=== PATIENT | male | born 1975 | race African-American/Black ===

== ENCOUNTER 2023-03-25 09:11 | Emergency (ER) | payer MEDICAID ==
[~2023-03-25] VITALS: Ht 180.3 cm; Wt 84.8 kg
[2023-03-25 10:20] VITALS: BP 142/89; PULSE 77; RESP 18; TEMP 98.3; O2SAT 98
== END 2023-03-25 10:15 | disposition left against medical advice (07) ==
LOC: ER 09:11
DX: M54.50 Low back pain, unspecified (principal); R73.9 Hyperglycemia, unspecified; Z53.21 Procedure and treatment not carried out due to patient leaving prior to being seen by health care provider; W22.01XA Walked into wall, initial encounter; Y93.89 Activity, other specified; Y92.89 Other specified places as the place of occurrence of the external cause; Y99.8 Other external cause status
CPT/HCPCS: 82962

== ENCOUNTER 2023-03-28 13:27 | Emergency (ER) | payer MEDICAID ==
[~2023-03-28] VITALS: Ht 180.3 cm; Wt 87.7 kg
[2023-03-28 14:44] LABS: Alanine Aminotransferase 41 U/L (7-40); Albumin 4.6 g/dL (3.2-4.8); Alkaline Phosphatase 95 U/L (46-116); Aspartate Aminotransferase 22 U/L (13-40); BUN/Creatinine Ratio 6.9 (10.0-20.0); Bilirubin, Total 0.3 mg/dL (0.2-1.0); Blood Urea Nitrogen 7 mg/dL (9-23); Calcium 9.6 mg/dL (8.5-10.1); Carbon Dioxide 30 mmol/L (20-30); Glucose 88 mg/dL (74-106); Total Protein 7.4 g/dL (5.7-8.2)
[2023-03-28] MEDS ORDERED: HYDROcodone-ACET 10/325MG TAB PO ONE (14:45)
[2023-03-28] MEDS ORDERED: KETOROLAC TROMETH 60MG/2ML VIAL IM ONE (14:45)
[2023-03-28 14:55] LABS: Anion Gap 6 (5-15); Chloride 107 mmol/L (98-107); Potassium 4.6 mmol/L (3.5-5.1); Sodium 143 mmol/L (136-145)
[2023-03-28 14:59] LABS: Basophils # (auto) 0 10 ^3/uL (0-0.2); Basophils % (auto) 0.5 % (0.0-2.0); Eosinophils # (auto) 0.1 10 ^3/uL (0-0.8); Eosinophils % (auto) 1.8 % (0.0-7.0); Hematocrit 47.3 % (41.0-53.0); Lymphocytes % (auto) 45.8 % (10.0-50.0); Mean Corpuscular Hemoglobin 29.5 pg (28.0-32.0); Mean Corpuscular Hgb Conc. 33.9 g/dL (32.0-36.0); Monocytes # (auto) 0.4 10 ^3/uL (0-1.3); Monocytes % (auto) 8.2 % (0.0-12.0); Neutrophils % (auto) 43.7 % (37.0-80.0); Nucleated Red Blood Cells % 0.3 %; Red Blood Cells 5.43 10^6/uL (4.5-5.90); Red Cell Distribution Width 14.1 % (11.8-14.3); White Blood Cell 4.5 10^3/uL (4.4-10.8)
[2023-03-28 17:17] LABS: Urine Bacteria NONE SEEN /hpf (None Seen); Urine Blood Negative /uL (Negative); Urine Clarity Clear (Clear); Urine Color Colorless (Yellow); Urine Protein, UAD Negative (Negative); Urine Specific Gravity 1.006 (1.001-1.035); Urine Urobilinogen Normal (Negative); Urine WBC <1 /hpf (0 - 3); Urine pH 5.5 (5.0-8.0)
[2023-03-28 17:37] LABS: Amphetamine Screen, Urine Neg (NEGATIVE); Barbiturate Scree,Urine Neg (NEGATIVE); Benzodiazephine Screen, Urine Neg (NEGATIVE); Cannabinoid Screen, Urine Pos (NEGATIVE); Cocaine Screen, Urine Neg (NEGATIVE); Opiate Scree,Urine Neg (NEGATIVE); Phencyclidine Screen, Urine Neg (NEGATIVE)
[2023-03-28] MEDS ORDERED: cefTRIAXone SODIUM 250 MG VL IM ONE (18:45)
[2023-03-28] MEDS ORDERED: AZITHROMYCIN 250 MG TAB PO ONE (18:45)
[2023-03-28] MEDS ORDERED: LISI20TA56 PO (19:04)
[2023-03-28 19:20] VITALS: BP 157/99; PULSE 77; RESP 18; TEMP 97.6; O2SAT 99
[2023-04-01 08:06] LABS: Chlamydia Trachomatis, NAA Negative (Negative); Neisseria gonorrhoeae, NAA Negative (Negative)
== END 2023-03-28 19:22 | disposition home or self-care (01) ==
LOC: ER 13:27
DX: R10.31 Right lower quadrant pain (principal); M54.16 Radiculopathy, lumbar region
CPT/HCPCS: 36415; 74176; 80053; 80307; 81001; 85025; 87491; 87591; 96372; 99285; J0696; J1885

== ENCOUNTER 2023-05-14 06:48 | Emergency (ER) | payer MEDICAID ==
[~2023-05-14] VITALS: Ht 180.3 cm; Wt 84.9 kg
[~2023-05-14 06:48] MED LIST: LISI20TA56 PO
[2023-05-14 08:06] LABS: Urine Bacteria NONE SEEN /hpf (None Seen); Urine Blood Negative /uL (Negative); Urine Clarity Clear (Clear); Urine Color Straw (Yellow); Urine Protein, UAD Negative (Negative); Urine Specific Gravity 1.006 (1.001-1.035); Urine Urobilinogen Normal (Negative); Urine WBC <1 /hpf (0 - 3); Urine pH 5.5 (5.0-8.0)
[2023-05-14] MEDS ORDERED: IBUP-1456 PO (10:59)
[2023-05-14] MEDS ORDERED: DOXY-447 PO (10:59)
[2023-05-14] MEDS ORDERED: INDO50CA82 PO ×2 (10:59)
[2023-05-14 11:00] VITALS: BP 139/78; PULSE 81; RESP 18; O2SAT 99
== END 2023-05-14 11:06 | disposition home or self-care (01) ==
LOC: ER 06:48
DX: M54.41 Lumbago with sciatica, right side (principal); G89.29 Other chronic pain; N45.1 Epididymitis; Z79.1 Long term (current) use of non-steroidal anti-inflammatories (NSAID); Z79.899 Other long term (current) drug therapy
CPT/HCPCS: 76870; 81001

== ENCOUNTER 2023-06-07 06:01 | Emergency (ER) | payer MEDICAID ==
[~2023-06-07] VITALS: Ht 180.3 cm; Wt 87.2 kg
[~2023-06-07 06:01] MED LIST changes: +DOXY-447 PO; +IBUP-1456 PO
[2023-06-07 06:08] VITALS: BP 134/86; PULSE 78; RESP 16; TEMP 98.1
[2023-06-07] MEDS ORDERED: HYDROcodone-ACET 5/325MG TAB PO ONE (07:00)
[2023-06-07] MEDS ORDERED: KETOROLAC TROMETH 60MG/2ML VIAL IM ONE (07:00)
[2023-06-07 07:36] VITALS: O2SAT 99
[2023-06-07] MEDS ORDERED: GABA-339 PO (08:08)
[2023-06-07] MEDS ORDERED: IBUP-1456 PO (08:08)
== END 2023-06-07 08:13 | disposition home or self-care (01) ==
LOC: ER 06:01
DX: M51.16 Intervertebral disc disorders with radiculopathy, lumbar region (principal); X50.1XXA Overexertion from prolonged static or awkward postures, initial encounter; Y93.01 Activity, walking, marching and hiking; Y92.89 Other specified places as the place of occurrence of the external cause; Y99.8 Other external cause status
CPT/HCPCS: 72100; 96372; 99283; J1885

== ENCOUNTER 2023-11-20 05:44 | Emergency (ER) | payer MEDICAID ==
[~2023-11-20] VITALS: Ht 180.3 cm; Wt 89.2 kg
[~2023-11-20 05:44] MED LIST changes: +GABA-339 PO
[2023-11-20 06:05] VITALS: BP 148/97; PULSE 74; RESP 18; O2SAT 98
== END 2023-11-20 06:37 | disposition left against medical advice (07) ==
LOC: ER 05:44
DX: N50.819 Testicular pain, unspecified (principal)